=== PATIENT | male | born 1975 | race Caucasian/White ===

== ENCOUNTER 2018-06-09 09:11 | Emergency (ER) | payer SELFPAY ==
[~2018-06-09] VITALS: Ht 175.3 cm; Wt 87.3 kg
[~2018-06-09 09:11] MED LIST: BENTYL 10MG10 MG/CAP PO; CHOLESTEROL MED; COLACE 100100 MG/CAP PO; NEURONTIN300 MG/CAP PO; NORCO 325 MG-51 TAB PO
[2018-06-09 09:14] VITALS: BP 140/86; PULSE 102; TEMP 98.8
== END 2018-06-09 10:20 | disposition home or self-care (01) ==
LOC: COL.ER 09:11
DX: S61.512A Laceration without foreign body of left wrist, initial encounter (principal); Z23 Encounter for immunization; W26.8XXA Contact with other sharp object(s), not elsewhere classified, initial encounter; Y92.89 Other specified places as the place of occurrence of the external cause

== ENCOUNTER 2018-06-18 11:42 | Emergency (ER) | payer SELFPAY ==
[2018-06-18 11:50] VITALS: BP 128/89; PULSE 84
== END 2018-06-18 11:51 | disposition home or self-care (01) ==
LOC: COL.ER 11:42
DX: S51.812D Laceration without foreign body of left forearm, subsequent encounter (principal); X58.XXXD Exposure to other specified factors, subsequent encounter